=== PATIENT | male | born 1955 | race Caucasian/White ===

== ENCOUNTER 2016-06-30 12:34 | Day surgery (SDC) | payer OTHER ==
[~2016-06-30] VITALS: Ht 185.4 cm; Wt 108.8 kg
[~2016-06-30 12:34] MED LIST: ACIPHEX20 MG PO; ALPRAZOLAM0.25 M2 PO; ALPRAZOLAM0.25 MG PO; ATHENOL325 MG PO; COUMADIN,JANTOVE5 MG PO; COUMADIN1 MG PO; COUMADIN2.5 MG PO; COUMADIN5 MG PO; CYCLOBENZAPRINE10 MG PO; DILAUDID2 MG PO; DOXYCYCLINE HY100 M3 PO; DUONEB 2.5-0.5 M3 ML IH; ENTEX PO; ENTEX T 60-3751 EACH PO; Entex LA PO; FLUOXETINE HCL20 MG PO; FOLIC ACID1 MG PO; Flexeril PO; HEPARIN SO5000 UNITS SC; HYDROCODON-ACE1 EAC7 PO; HYDROXYCHLOROQ200 MG PO; IRON SUPPLEMEN325 MG PO; IRON325 M1 PO; KADIAN60 MG PO; LEVAQUIN750 MG PO; LIPITOR20 MG PO; METHOTREXATE2.5 MG PO; MORPHINE SULFAT60 MG PO; MS CONTIN,ORAMO30 MG PO; NAPROXEN500 MG PO; NEBULIZER; NEURONTIN100 MG PO; NITROGLYCERIN0.4 MG PO; NITROSTAT0.4 MG SL; NORVASC2.5 MG PO; NORVASC5 MG PO; Neurontin PO; OMEPRAZOLE40 M1 PO; OXYCONTIN20 MG PO; OXYCONTIN30 MG PO; OXYGEN; PERCOCET 10/1 TABLET PO; PERCOCET 5/31 TABLET PO; PLAQUENIL200 MG PO; PREDNISONE10 MG PO; PREDNISONE20 M1 PO; PREDNISONE20 MG PO; PREDNISONE5 MG PO; PRILOSEC40 MG PO; PROAIR HFA8.5 GM IH; PROMETHAZINE12.5 M1 PO; PROZAC20 MG PO; PULMICORT0.25 MG/1 IH; PULMICORT0.5 MG/21 IH; SINGULAIR10 MG PO; VENTOLIN HFA18 GM IH; VITAMIN D250000 UNIT PO; VITAMIN D50000 UNI1 PO; Vicodin,Norco 5/325 PO; WARFARIN SODIUM5 MG PO; ZETIA10 MG PO
[2016-06-30 13:20] LABS: HEMATOCRIT 44.3 % (38.0-50.0); MCH 31.3 PG (29.0-34.0); MCHC 33.4 G/DL (30.0-36.0); MCV 93.7 FL (86-99); MEAN PLAT.VOLUME 9.8 uM^3 (9.0-12.4); PLATELET COUNT 214 K/uL (156-360); RBC DIS.WIDTH-CV 13.7 % (11.8-14.6); RBC DIS.WIDTH-SD 47.2 % (39-53); RED BLOOD COUNT 4.73 M/uL (4.00-5.50); WHITE BLOOD COUNT 6.1 K/uL (4.1-10.2)
[2016-06-30 13:35] LABS: PROTHROMBIN TIME 10.6 (9.2-11.2)
[2016-06-30 13:41] VITALS: BP 135/90
[2016-06-30 13:41] LABS: ANION GAP 7 MEQ/L (2-14); CHLORIDE 103 MEQ/L (99-109); GFR ESTIMATE (CALCULATED) > 59 mL/min/; GLUCOSE 94 mg/dL (70-99); POTASSIUM 3.8 MEQ/L (3.7-5.4); SAMPLE HEMOLYSIS CHECK 0; SAMPLE ICTERIC CHECK 0; SAMPLE LIPEMIA CHECK 0; SODIUM 139 MEQ/L (136-147); UREA NITROGEN (BUN) 9 mg/dL (9-23)
[2016-06-30 14:41] LABS: METH RESISTANT S AUREUS PCR NEGATIVE (NEGATIVE)
[2016-06-30 14:50] LABS: PROBE CHECK PASS; SPECIMEN PROCESSING CONTROL PASS
[2016-06-30 20:30] VITALS: BP 134/85
[2016-06-30 21:05] VITALS: BP 134/85
[2016-07-01 00:03] VITALS: BP 121/74
[2016-07-01 03:45] VITALS: BP 115/59
[2016-07-01 07:42] VITALS: BP 122/74
[2016-07-01 10:55] VITALS: BP 125/65
== END 2016-07-01 12:12 | disposition home or self-care (01) ==
LOC: SDC 12:34 → 2SOUTH 18:48 → 3EAST 18:48 → 2SOUTH 18:48 → 3EAST 20:24
PROVIDERS: Neurological Surgery
DX: M96.1 Postlaminectomy syndrome, not elsewhere classified (principal); G89.4 Chronic pain syndrome; M54.5 Low back pain; M79.606 Pain in leg, unspecified; Z68.33 Body mass index [BMI] 33.0-33.9, adult; Z79.891 Long term (current) use of opiate analgesic; Z79.01 Long term (current) use of anticoagulants; Z79.899 Other long term (current) drug therapy; I11.0 Hypertensive heart disease with heart failure; I50.9 Heart failure, unspecified; Z86.718 Personal history of other venous thrombosis and embolism; Z86.711 Personal history of pulmonary embolism; Z85.828 Personal history of other malignant neoplasm of skin; I25.2 Old myocardial infarction; G47.30 Sleep apnea, unspecified; Z98.1 Arthrodesis status; Z95.828 Presence of other vascular implants and grafts; M06.9 Rheumatoid arthritis, unspecified; Z88.0 Allergy status to penicillin; Z91.030 Bee allergy status
CPT/HCPCS: 72020; 76000; 80048; 85027; 85610; 87641; 93005; 94799; 99202; C1778; G0378; J1100; J1170; J2250; J2270; J2405; J3010; J3370; J3480; J7512

== ENCOUNTER → 2017-07-04 | Outpatient (CLI) | payer OTHER | END | disposition home or self-care (01) | LOC: RAD 13:34 | PROC: 3E0R3KZ Introduction of Other Diagnostic Substance into Spinal Canal, Percutaneous Approach (ICD-10-PCS; principal; 2017-07-04) | DX: M47.892 Other spondylosis, cervical region (principal); M46.92 Unspecified inflammatory spondylopathy, cervical region | CPT/HCPCS: 62302; 72126 ==

== ENCOUNTER → 2017-07-20 | Outpatient (CLI) | payer OTHER | END | disposition home or self-care (01) | LOC: NUC 08:11 | DX: M70.61 Trochanteric bursitis, right hip (principal); M17.12 Unilateral primary osteoarthritis, left knee; M19.072 Primary osteoarthritis, left ankle and foot; M19.071 Primary osteoarthritis, right ankle and foot; Z98.1 Arthrodesis status | CPT/HCPCS: 78315; A9503 ==

== ENCOUNTER → 2017-08-28 | Outpatient (CLI) | payer MEDICARE, OTHER | END | disposition home or self-care (01) | LOC: CDC 11:55 | DX: Z01.810 Encounter for preprocedural cardiovascular examination (principal); I11.9 Hypertensive heart disease without heart failure; I25.10 Atherosclerotic heart disease of native coronary artery without angina pectoris; I45.10 Unspecified right bundle-branch block | CPT/HCPCS: 93000 ==

== ENCOUNTER 2017-09-08 05:16 | Day surgery (SDC) | payer OTHER ==
[~2017-09-08] VITALS: Ht 185.4 cm; Wt 110.5 kg
[2017-09-08 06:05] VITALS: BP 160/87
[2017-09-08 13:34] VITALS: BP 121/75
[2017-09-08 16:23] VITALS: BP 118/65
[2017-09-08 20:11] VITALS: BP 127/65
[2017-09-09 00:28] VITALS: BP 106/55
[2017-09-09 05:01] VITALS: BP 125/58
[2017-09-09 07:25] VITALS: BP 139/80
== END 2017-09-09 15:47 | disposition home or self-care (01) ==
LOC: SDC 05:16 → 2SOUTH 10:30 → 3EAST 10:30 → 2SOUTH 10:30 → SDC 10:47 → ENRESERV 11:24 → 3EAST 13:16 → SDC 16:58 → 3EAST 09-09 13:30
DX: M47.22 Other spondylosis with radiculopathy, cervical region (principal); M50.122 Cervical disc disorder at C5-C6 level with radiculopathy; G89.29 Other chronic pain; M96.1 Postlaminectomy syndrome, not elsewhere classified; J44.9 Chronic obstructive pulmonary disease, unspecified; G47.30 Sleep apnea, unspecified; I25.2 Old myocardial infarction; M06.9 Rheumatoid arthritis, unspecified; I11.0 Hypertensive heart disease with heart failure; I50.9 Heart failure, unspecified; I45.10 Unspecified right bundle-branch block; Z86.711 Personal history of pulmonary embolism; Z88.0 Allergy status to penicillin; Z86.718 Personal history of other venous thrombosis and embolism; Z79.01 Long term (current) use of anticoagulants
CPT/HCPCS: 72020; 76000; 94640 76; 94799; 99202; G0378; J0131; J0330; J1170; J2250; J2405; J2710; J3010; J3480; J7512; J7643